=== PATIENT | male | born 1955 | race Caucasian/White ===

== ENCOUNTER 2023-09-15 20:50 | Inpatient (IN) | payer OTHER, SELFPAY ==
--- NOTE | ~2023-09-15 | XR_ITS ---
EXAMINATION: XR chest 1V portable Exam Date/Time: 09/15/2023 21:27 CDT HISTORY: infection, AMS Comparison: None. RESULT: Lines, tubes, and devices: None. Lungs and pleura: Senescent change. Left midlung granuloma. No focal consolidation, pleural effusion , or pneumothorax. Cardiomediastinal silhouette: Mild aortic arch calcification and aortic unfolding. Normal heart size . Other: No acute osseous or upper abdominal finding. Old distal left clavicular fracture healed in de formity, with possible pseudarthrosis. IMPRESSION: No acute cardiopulmonary process. Reviewed, dictated and finalized at location K.
--- NOTE | ~2023-09-15 | CT_ITS ---
CT head without contrast Indication: Altered mental status Technique: Serial scans were obtained through the brain without the administration of contrast. Dose reduction technique was used on this scan by utilizing automated exposure control and iterative recon struction technique. The dose-length product (DLP) was 605.33 mGy-cm. Findings: There is no evidence of intracranial hemorrhage, mass lesion, or acute infarct. The ventri cles and subarachnoid spaces are dilated, consistent with moderate atrophy. Low attenuation regions are seen within the periventricular white matter bilaterally, likely representing changes from chroni c microvascular ischemic disease. There is no evidence of edema, mass effect or midline shift. The visualized paranasal sinuses and mastoid air cells are clear. Impression: No intracranial hemorrhage, mass, or acute infarct. Atrophy and chronic white matter changes, as above. Reviewed, dictated and finalized at location . Impression: No intracranial hemorrhage, mass, or acute infarct. Atrophy and chronic white matter changes, as above.
[2023-09-15 20:49] VITALS: BP 125/115; PULSE 112; RESP 20; TEMP 36.6; O2SAT 97
[2023-09-15 21:01] VITALS: PULSE 94
[2023-09-15 21:19] LABS: Basophils Absolute Auto 0.1 K/mm3 (0.0-0.1); Eosinophils Absolute Auto 0.2 K/mm3 (0-0.3); Eosinophils Percent Auto 2.3 % (0-4.4); Hemoglobin 15.2 g/dL (14.0-18.0); Immature Granulocyte Absolute 0.07 K/mm3 (0.00-0.031); Immature Granulocyte Percent A 0.9 % (0-0.5); Immature Platelet Fraction Pct 10.4 % (0.9-11.2); Lymphocytes Absolute Auto 1.82 K/mm3 (0.9-3.2); Lymphocytes Percent Auto 22.4 % (18.3-44.2); Mean Corpuscular HGB Conc 36.2 g/dl (32-36); Mean Corpuscular Hemoglobin 36.1 pg (26-34); Mean Corpuscular Volume 99.8 fl (80-100); Monocytes Absolute Auto 1.2 K/mm3 (0.1-0.6); Neutrophils Absolute Auto 4.8 K/mm3 (1.3-6.7); Neutrophils Percent Auto 58.4 % (45.5-73.1); Platelet Count Result 134 k/mm3 (150-375); Red Blood Count 4.21 M/mm3 (4.6-6.20); Red Cell Distribution Width 12.6 % (11.5-14.5); White Blood Count 8.1 K/mm3 (4.5-10.0)
[2023-09-15 21:29] LABS: Ammonia 11 umol/L (9-30)
[2023-09-15 21:30] LABS: Alanine Aminotransferase 104 U/L (6-50); Albumin Level 4.4 g/dL (3.5-5.1); Alkaline Phosphatase 82 U/L (38-126); Anion Gap 13 mmol/L (4-12); Aspartate Amino Transferase 175 U/L (17-59); Bilirubin,Total 1.2 mg/dL (0.2-1.3); Blood Urea Nitrogen 4 mg/dL (9-20); Calcium 9.5 mg/dL (8.4-10.2); Carbon Dioxide 19 mmol/L (22-30); Chloride 99 mmol/L (98-107); Creatine Kinase 79 U/L (55-170); Estimated CRCL calculation 79 ml/min; Estimated Glomerular Filt Rate > 60; Glucose 114 mg/dL (65-110); Lactic Acid Reflex 2.1 mmol/L (0.7-2.0); Magnesium 2.2 mg/dL (1.6-2.3); Potassium 3.5 mmol/L (3.4-5.0); Sodium 131 mmol/L (137-145)
[2023-09-15 21:38] LABS: Appearance Urine Clear (Clear); Bacteria Urine None Seen /hpf; Bilirubin Urine Negative (Negative); Blood Urine Negative (Negative); Color Urine Yellow (Yellow); Glucose Urine UA Negative (Negative); Ketones Urine Negative (Negative); Leukocyte Esterase Ur 1+ LEU/UL (Negative); Need Manual Microscopic Reviewed; Nitrate Urine Negative (Negative); Non Pathogenic Casts 0-2; Protein Urine Negative (Negative); RBC Urine 0-2 /hpf (0-2); Specific Grav Ur 1.005 (1.001-1.035); Squamous Epithelial Cell Urine None Seen /hpf (Few); Urobilinogen Urine 0.2 mg/dL (<2.0); WBC Urine 0-5 /hpf (0-3); pH Urine 6.5 (5.0-9.0)
[2023-09-15 21:39] LABS: Add Urine Microscopic? YES
--- NOTE | 2023-09-15 22:09 | ED.AMS ---
HPI - Altered Mental Status General Chief Complaint: Altered Mental Status Stated Complaint: DECREASE IN MENTAL STATUS Time Seen by Provider: 09/15/23 21:01 History of Present Illness HPI narrative: Patient is a 68-year-old male who presents to the emergency department this evening due to confusion. EMS who brought the patient in states that they are familiar with the patient and admit that he does appear to be more confused than his baseline. Patient does have a history of cirrhosis and states that he was told that there was nothing else to do for him and that he knows that he is dying. Patient is alert and oriented to person and situation, thinks that it is 2001 and does not know the name of this hospital and the city he is in. Patient admits that he has never been to this hospital before. He lives at home alone with his cat. He is currently denying any specific symptoms including chest pain, shortness of breath, nausea or vomiting, denies any abdominal pain. No additional symptoms or concerns at this time. Related Data Allergies Allergy/AdvReac Type Severity Reaction Status Date / Time No Known Allergies Allergy Verified 09/15/23 21:04 Review of Systems Review of Systems: All systems are reviewed and are negative unless stated otherwise in the HPI. Exam Narrative: General: Alert, awake, afebrile, poor hygiene. Cardiovascular: Regular rate and rhythm, no murmurs, rubs or gallops, no peripheral edema. Respiratory: Clear to auscultation bilaterally, no tachypnea, no wheezing, no rhonchi, no rubs, no respiratory distress. Abdomen: Soft, nontender, nondistended, no rebound, no guarding, no peritoneal signs. Musculoskeletal: No joint swelling or deformity, normal muscle tone. Skin: No rashes or petechia, no signs of infection. Psychiatric: Alert and oriented x2, normal behavior and judgment for situation. Neurological: Alert and oriented to person, place and situation, not oriented to time. Follows all commands. No focal deficits, speech is clear and fluent. Course Vital Signs Vital signs: Vital Signs Temperature 97.9 F 09/15/23 20:49 Pulse Rate 112 H 09/15/23 20:49 Respiratory Rate 20 09/15/23 20:49 Blood Pressure 125/115 H 09/15/23 20:49 Pulse Oximetry 97 09/15/23 20:49 Oxygen Delivery Room Air 09/15/23 20:49 Temperature 97.9 F 09/15/23 20:49 Pulse Rate 87 09/16/23 04:33 Respiratory Rate 16 09/16/23 04:33 Blood Pressure 110/76 09/16/23 04:33 Pulse Oximetry 99 09/16/23 04:33 Oxygen Delivery Room Air 09/15/23 21:01 MDM - Altered Mental Status MDM Narrative Medical decision making narrative: The patient was evaluated by myself in the emergency department. History is obtained from patient who is an independent historian and physical exam was performed. External medical records were reviewed at this time. IV was established and pertinent tests were ordered. Patient was administered 1 L IV fluid bolus with normal saline. Laboratory results obtained revealing a lactic acid of 2.1, AST of 175, ALT of 104, otherwise no acute process. Ammonia level noted to be normal at 11. Imaging studies obtained included CXR which was independently interpreted by me revealing no acute process, which is pending final radiology interpretation. CT brain without IV contrast was obtained independently interpreted by me revealing no acute process. Differential diagnosis considerations include Hepatic encephalopathy, acute viral syndrome, infectious process such as pneumonia. Comorbidities impacting this visit include history of end-stage liver disease. I have evaluated and discussed social determinants of health with the patient that could potentially impact subsequent diagnosis and treatment plans. On repeat assessment of the patient, reevaluation revealed that the patient is doing well and is in no acute distress. Patient symptoms have Remained stable since he arrived to our em
[2023-09-15 22:11] VITALS: BP 94/69; PULSE 101; RESP 16; O2SAT 97
[2023-09-15 22:31] VITALS: BP 107/71; PULSE 99; RESP 22; O2SAT 96
[2023-09-15] MEDS: SODIUM CHLORIDE 0.9% IV 1,000 ML 999 ML IV CONT (22:47)
[2023-09-15 23:04] VITALS: PULSE 94; RESP 21; O2SAT 97
[2023-09-15 23:15] LABS: Influenza A QL RT-PCR Negative (Negative); Influenza B QL RT-PCR Negative (Negative); RSV RNA, RT-PCR Negative (Negative); SARS-CoV-2 RNA PCR Negative (Negative)
[2023-09-16] VITALS (8 sets, daily range): BP systolic 110–136; BP diastolic 61–83; PULSE 67–100; RESP 16–20; TEMP 35.8–36.7; O2SAT 93–99; BMI 23.1
[2023-09-16 00:15] LABS: Reflex Lactic Acid Yes or No Add Lactic
--- NOTE | 2023-09-16 00:30 | PC.NURSE ---
Discharge instructions reviewed with patient, patient verbalizes understanding. Patient states he is unable to get a ride back to the place he lives.
--- NOTE | 2023-09-16 05:05 | ADMGEN ---
This patient, Mariusz Aguirre, was admitted to [facility] Surg Room 323-02. Patient/family oriented to hospital policies and general routines including ID bracelet, bed and alarms, visiting hours, pain management, procedures, bathroom and other care routines, personal items, smoking policy, room service/diet, and visiting hours. Information on how to activate the Rapid Response Team has been discussed. Patient/Family are encouraged to report perceived risks to care and to ask questions if they do not understand what they are told or what they should do.
--- NOTE | 2023-09-16 06:22 | PM.IMHP ---
H&P: HPI History of Present Illness Date/Time: 09/16/23 06:22 Chief Complaint: 1. Confusion 2. Altered mental status Narrative: Mariusz Aguirre is a 68 yo M with a mHx significan for alcohol dependence, liver cirrhosis and nicotine dependence. He was brought to the [facility] by EMS; the patient states that he did not summon EMS nor does he know who did or why they did. He denies falls, nausea, vomiting, fevers, chest pain, dizziness, LOC Patient does have a history of cirrhosis and states that he was told that there was nothing else to do for him and that he knows that he is dying.? Patient is alert and oriented to person and situation, he is however unable to correctly state the city or date; He smokes about 1ppd of cigarettes, drinks at least 6 cans of beers nightly with his last drink being on the day of admission; he denies recreational/illicit drug. Work-up findings: Patient was administered? 1 L IV fluid bolus with normal saline. Lactic acid of 2.1, AST of 175, ALT of 104, otherwise no acute process.? Ammonia level noted to be normal at 11. CXR which was independently interpreted by me revealing no acute process, which is pending final radiology interpretation. CT brain without IV contrast was obtained independently interpreted by me revealing no acute process. He will be admitted, evaluated and managed for acute encephalopathy probably 2/2 alcohol intoxication, withdrawal or metabolic imbalance. Review of Systems Constitutional: Constitutional: Reports body ache(s), Reports fatigue, Reports lethargy and Reports night sweats Eyes: Eyes: Reports no additional eye complaints and Denies blurry vision ENT: Denies Normal hearing present, Denies dysphagia, Denies epistaxis, Denies nasal congestion and Denies nasal discharge Cardiovascular: Cardiovascular: Denies no additional cardiovascular complaints, Denies leg edema, Denies lightheadedness and Denies palpitations Respiratory: Respiratory: Reports no additional respiratory complaints, Denies hemoptysis, Denies dyspnea and Denies dyspnea on exertion Gastrointestinal: Gastrointestinal: Denies constipation, Denies heartburn, Denies nausea and Denies vomiting Genitourinary: Genitourinary: Denies flank pain and Denies urinary urgency Musculoskeletal: Musculoskeletal: Denies back pain and Denies joint swelling Integumentary/Breasts: Skin/Breast: Denies dry skin and Denies pruritus Neurologic: Denies Abnormal speech present, Denies abnormal gait, Reports confusion and Denies headache(s) Psychiatric: Psychiatric: Reports anxiety, Denies confusion and Denies depression PMFSH Family History Family History (Updated 09/16/23 @ 05:28 by Nicky Young RN) Mother History of open heart surgery Heart disease Father Heart attack Social History Social History Smoking packs per day: 1.5 Smoking cigarettes per day: 30.0 Years smoked: 57 Smoking pack-years: 85.50 Smoking status: Current every day smoker Tobacco type: cigarettes Alcohol intake: current Drinks per week: 42 Substance use: never Do You Feel Safe in your Home?: Yes Lack of Transportation: No Lack of Food: Sometimes True Current Housing: I Have Housing Concerned About Future Housing: No Difficulty Paying Gas/Electric Bills: No Difficulty Paying for Meds: No Currently Unemployed: No Education: Associate Degree Difficulty w/ Childcare or Family Care: No Spiritual care concerns: No Meds Home Medications and Allergies Home Medications Medication Instructions Recorded Confirmed Type No Home Medications 09/16/23 09/16/23 History Allergies Allergy/AdvReac Type Severity Reaction Status Date / Time No Known Allergies Allergy Verified 09/16/23 05:19 Vital Signs Vital Signs - 24 hr 09/15/23 20:49 09/15/23 21:01 09/15/23 22:11 Temperature 97.9 F Pulse Rate 112 H 101 H Respiratory Rate 20 16 Blood Pres
[2023-09-16] MEDS: THIAMINE HCL 200 MG/2 ML VIAL 100 MG IV PUSH (08:21)
[2023-09-16] MEDS: ENOXAPARIN 40 MG/0.4 ML SYRINGE SUB-Q (08:21)
[2023-09-16 08:58] LABS: Basophils Absolute Auto 0.1 K/mm3 (0.0-0.1); Basophils Percent Auto 1.2 % (0.2-1.2); Eosinophils Absolute Auto 0.1 K/mm3 (0-0.3); Eosinophils Percent Auto 2.4 % (0-4.4); Hematocrit 40.1 % (42.0-52.0); Hemoglobin 14.2 g/dL (14.0-18.0); Immature Granulocyte Absolute 0.03 K/mm3 (0.00-0.031); Immature Granulocyte Percent A 0.5 % (0-0.5); Immature Platelet Fraction Pct 8.9 % (0.9-11.2); Lymphocytes Absolute Auto 0.91 K/mm3 (0.9-3.2); Lymphocytes Percent Auto 15.6 % (18.3-44.2); Mean Corpuscular HGB Conc 35.4 g/dl (32-36); Mean Corpuscular Hemoglobin 36.3 pg (26-34); Mean Corpuscular Volume 102.6 fl (80-100); Mean Platelet Volume 11.3 fl (7.4-10.4); Monocytes Absolute Auto 0.7 K/mm3 (0.1-0.6); Monocytes Percent Auto 12.5 % (2.6-8.5); Neutrophils Absolute Auto 3.9 K/mm3 (1.3-6.7); Neutrophils Percent Auto 67.8 % (45.5-73.1); Platelet Count Result 123 k/mm3 (150-375); Red Blood Count 3.91 M/mm3 (4.6-6.20); Red Cell Distribution Width 12.9 % (11.5-14.5); White Blood Count 5.8 K/mm3 (4.5-10.0)
[2023-09-16 09:05] LABS: Alanine Aminotransferase 91 U/L (6-50); Albumin Level 3.7 g/dL (3.5-5.1); Alkaline Phosphatase 78 U/L (38-126); Anion Gap 6 mmol/L (4-12); Aspartate Amino Transferase 146 U/L (17-59); Bilirubin,Total 1.3 mg/dL (0.2-1.3); Blood Urea Nitrogen 5 mg/dL (9-20); Calcium 8.5 mg/dL (8.4-10.2); Carbon Dioxide 25 mmol/L (22-30); Chloride 101 mmol/L (98-107); Estimated CRCL calculation 79 ml/min; Estimated Glomerular Filt Rate > 60; Glucose 129 mg/dL (65-110); Potassium 3.4 mmol/L (3.4-5.0); Sodium 132 mmol/L (137-145)
[2023-09-16 09:07] LABS: Ethanol < 10 mg/dL (<10)
[2023-09-16 11:43] LABS: Glucose Point of Care 127 mg/dl (65-105)
--- NOTE | 2023-09-16 13:29 | PM.IMPN ---
Progress Note: A&P Assessment and Plan (1) Decompensation of cirrhosis of liver: Code(s): K72.90 - Hepatic failure, unspecified without coma; K74.60 - Unspecified cirrhosis of liver Status: Acute Assessment and Plan: Chronic cirrhosis. Tot bili 1.2, AST 175, ALT 104, alk phos 82 on admission. - LFTs improving. Tot bili 1.3, AST 146, ALT 91, Alk phos 91. - Ammonia 11 - Hepatitis panel ordered (2) Acute metabolic encephalopathy: Code(s): G93.41 - Metabolic encephalopathy Status: Acute Assessment and Plan: AMS on arrival. Head CT unremarkable. Ammonia WNL. - AOx4 on todays assessment - monitor (3) Alcohol dependence: Code(s): F10.20 - Alcohol dependence, uncomplicated Status: Acute Assessment and Plan: Patient states he has drank 6 beers nightly for as long as he can remember. The only time patient was not a daily drinker was during his incarceration. He denies any withdrawal symptoms at that time. - [facility] protocol - B12/thiamine/multivitamin ordered - Discussed in depth with patient that continued alcohol abuse will further exacerbate his cirrhosis. He states understanding and notes that he does not want/need any resources for alcohol cessation. (4) Nicotine dependence: Code(s): F17.200 - Nicotine dependence, unspecified, uncomplicated Status: Acute Assessment and Plan: Patient states that he has smoked 1 pack a day since he was a child. Discussed with patient the importance of smoking cessation and he is uninterested. - Denies current need for nicotine patch Time Spent With Patient Time with patient: 25 - 35 minutes Subjective Date/time seen: 09/16/23 13:29 Interval history: 68 year old male with a history of significant alcohol dependence, liver cirrhosis and nicotine dependence presents to the hospital for AMS. Patient lying comfortably in bed. He states that the last thing he remembers prior to admission was falling outside of his hotel room and being unable to get up. Per ED report patient is well known to EMS and he appears confused from his baseline. Head CT and chest XR was unremarkable. On assessment today patient is AOx4 however he continues to be weak. He was evaluated by PT/OT who are recommending continued skilled therapy. Discussed this with care coordination who is concerned because patient does not have health insurance and is living at a hotel. Patient denies any pain, shortness of breath, nausea/vomiting, and changes in bowel/bladder. His CIWAs have been negative since admission. ETOH < 10. Ammonia WNL. Patient denies illicit drug use. UDS ordered. Review of Systems Review of Systems: All systems reviewed & are unremarkable except as noted in HPI and below Exam Narrative: AF HR 73 RR 20 SpO2 97 BP 112/61 General: unkept male in no acute respiratory distress who is nontoxic appearing, lying semi recumbent in bed. HEENT: Normocephalic. Atraumatic. Pupils equal round reactive to light. Extraocular movement intact. No facial asymmetry. Chest: Lungs are clear to auscultation bilaterally. No wheezes or crackles. CV: Heart was regular rate and rhythm. S1/S2. No murmurs, gallops, or rubs. Abd: Abdomen was soft. Nontender. Nondistended. Positive bowel sounds. No organomegaly or masses. Ext: No clubbing, cyanosis, or edema. 2+ DP pulses bilaterally. Neuro: Patient is alert and oriented x4. Strength in the lower extremities. Cranial nerves 2-12 are intact. Speech is clear. Psych: Normal mood and affect. Patient is pleasant and cooperative. Skin: Warm and dry. No rashes noted. Objective Data Vital Signs Vital Signs: Vital Signs - 24 hr 09/15/23 20:49 09/15/23 21:01 09/15/23 22:11 Temperature 97.9 F Pulse Rate 112 H 101 H Respiratory Rate 20 16 Blood Pressure 125/115 H 94/69 L Pulse Oximetry 97 97 Oxygen Delivery Room Air Room Air 09/15/23 21:01 09/15/23 22:31 09/15/23 23:04 Temperature Pulse Rate 94 9
[2023-09-16 17:48] LABS: Amphetamine Screen Urine Negative (Negative); Barbiturate Screen Urine Negative (Negative); Benzodiazepines Screen Urine Negative (Negative); Cannabinoid Screen Urine Negative (Negative); Cocaine Screen Urine Negative (Negative); Methadone Screen Urine Negative (Negative); Opiate Screen Urine Negative (Negative); Phencyclidine Screen Urine Negative (Negative)
[2023-09-16 18:12] LABS: Glucose Point of Care 145 mg/dl (65-105)
[2023-09-16] MEDS: SODIUM CHLORIDE 0.9% IV 1,000 ML 100 ML IV CONT (19:21)
[2023-09-17 00:20] VITALS: BP 123/67; PULSE 65; RESP 20; TEMP 35.5; O2SAT 98
[2023-09-17 00:27] LABS: Glucose Point of Care 104 mg/dl (65-105)
[2023-09-17] MEDS: SODIUM CHLORIDE 0.9% IV 1,000 ML 100 ML IV CONT (04:38)
[2023-09-17 06:00] VITALS: BP 113/80; PULSE 58; RESP 20; TEMP 35.8; O2SAT 96
[2023-09-17 06:47] LABS: Basophils Absolute Auto 0.1 K/mm3 (0.0-0.1); Basophils Percent Auto 1.1 % (0.2-1.2); Eosinophils Absolute Auto 0.1 K/mm3 (0-0.3); Eosinophils Percent Auto 2.7 % (0-4.4); Hematocrit 36.4 % (42.0-52.0); Hemoglobin 12.4 g/dL (14.0-18.0); Immature Granulocyte Absolute 0.02 K/mm3 (0.00-0.031); Immature Granulocyte Percent A 0.5 % (0-0.5); Immature Platelet Fraction Pct 8.8 % (0.9-11.2); Lymphocytes Absolute Auto 0.79 K/mm3 (0.9-3.2); Lymphocytes Percent Auto 17.9 % (18.3-44.2); Mean Corpuscular HGB Conc 34.1 g/dl (32-36); Mean Corpuscular Hemoglobin 36.2 pg (26-34); Mean Corpuscular Volume 106.1 fl (80-100); Mean Platelet Volume 11.5 fl (7.4-10.4); Monocytes Absolute Auto 0.7 K/mm3 (0.1-0.6); Monocytes Percent Auto 15.4 % (2.6-8.5); Neutrophils Absolute Auto 2.8 K/mm3 (1.3-6.7); Neutrophils Percent Auto 62.4 % (45.5-73.1); Platelet Count Result 110 k/mm3 (150-375); Red Blood Count 3.43 M/mm3 (4.6-6.20); Red Cell Distribution Width 12.5 % (11.5-14.5); White Blood Count 4.4 K/mm3 (4.5-10.0)
[2023-09-17 06:53] LABS: Alanine Aminotransferase 66 U/L (6-50); Albumin Level 2.9 g/dL (3.5-5.1); Alkaline Phosphatase 60 U/L (38-126); Anion Gap 3 mmol/L (4-12); Aspartate Amino Transferase 97 U/L (17-59); Bilirubin,Total 1.8 mg/dL (0.2-1.3); Blood Urea Nitrogen 9 mg/dL (9-20); Calcium 7.4 mg/dL (8.4-10.2); Carbon Dioxide 24 mmol/L (22-30); Chloride 104 mmol/L (98-107); Estimated CRCL calculation 91 ml/min; Estimated Glomerular Filt Rate > 60; Glucose 90 mg/dL (65-110); Potassium 3.5 mmol/L (3.4-5.0); Sodium 131 mmol/L (137-145)
[2023-09-17 07:27] LABS: Hepatitis B Surface Antigen Negative (Negative)
[2023-09-17 07:33] LABS: HAV RESULT Negative (Negative); Hepatitis B Core IgM Result Negative (Negative)
[2023-09-17 07:45] LABS: Hepatitis C Virus Antibody Reactive (Negative)
[2023-09-17 07:48] VITALS: BP 124/67; PULSE 63; RESP 16; TEMP 36.4; O2SAT 98
[2023-09-17] MEDS: THIAMINE HCL 200 MG/2 ML VIAL 100 MG IV PUSH (08:56)
[2023-09-17] MEDS: ENOXAPARIN 40 MG/0.4 ML SYRINGE SUB-Q (08:57)
[2023-09-17] MEDS: CYANOCOBALAMIN 1,000 MCG TABLET 1000 MCG PO (08:57)
[2023-09-17 09:00] VITALS: BP 140/93; PULSE 79; O2SAT 99
[2023-09-17 11:40] LABS: Glucose Point of Care 143 mg/dl (65-105)
[2023-09-17 12:00] VITALS: BP 128/74; PULSE 88; RESP 18; TEMP 36.1; O2SAT 98
--- NOTE | 2023-09-17 13:04 | PM.DS ---
DS: Admitting Diagnosis Discharge Date 09/17/23 Admitting Diagnosis Decompensation of cirrhosis of liver Acute metabolic encephalopathy Alcohol dependence Nicotine dependence DS: Discharge Diagnosis Discharge Diagnosis (1) Decompensation of cirrhosis of liver: Code(s): K72.90 - Hepatic failure, unspecified without coma; K74.60 - Unspecified cirrhosis of liver Status: Acute (2) Acute metabolic encephalopathy: Code(s): G93.41 - Metabolic encephalopathy Status: Acute (3) Alcohol dependence: Code(s): F10.20 - Alcohol dependence, uncomplicated Status: Acute (4) Nicotine dependence: Code(s): F17.200 - Nicotine dependence, unspecified, uncomplicated Status: Acute DS: Summary Hospital Course Reason for hospitalization: Decompensation of cirrhosis of liver Acute metabolic encephalopathy Alcohol dependence Nicotine dependence Hospital Course: 68 year old male with a history of significant alcohol dependence, liver cirrhosis and nicotine dependence presents to the hospital for AMS that resolved during admission. Imaging was unremarkable. Labs revealed elevated liver enzymes that improved throughout admission. Patient started on B12 and folic acid supplementation for macrocytic anemia likely secondary to his alcohol intake. On arrival patient endorsed weakness to the lower extremities. Patient evaluated by PT/OT prior to discharge who states that patient demonstrating good mobility with w/w. Patient also notes that even if PT/OT were to recommend placement or home health her would refuse as he wants to go home. Discussed in depth with patient the importance of smoking and alcohol cessation. He states understanding but notes that he does not want to quit either. Resources given by care coordination. Patient discharged home in stable condition he remains AOx4. He will continue his B12 and folic acid supplementation and follow up with his PCP in 1 week. Time spent discussing smoking cessation with patient: more than 10 minutes Status at Discharge Functional status at discharge: uses cane/walker Time Spent with Patient Time attestation: Total time spent providing and/or coordinating discharge services: Time spent: Greater than 30 minutes Exam Narrative: AF HR 88 RR 18 SpO2 98 BP 128/74 General: unkept male in no acute respiratory distress who is nontoxic appearing, lying semi recumbent in bed. HEENT: Normocephalic. Atraumatic. Pupils equal round reactive to light. Extraocular movement intact. No facial asymmetry. Chest: Lungs are clear to auscultation bilaterally. No wheezes or crackles. CV: Heart was regular rate and rhythm. S1/S2. No murmurs, gallops, or rubs. Abd: Abdomen was soft. Nontender. Nondistended. Positive bowel sounds. No organomegaly or masses. Ext: No clubbing, cyanosis, or edema. 2+ DP pulses bilaterally. Neuro: Patient is alert and oriented x4. Strength 5/5 in the upper and lower extremities. Cranial nerves 2-12 are intact. Speech is clear. Psych: Normal mood and affect. Patient is pleasant and cooperative. Skin: Warm and dry. No rashes noted. DS: Data Data Completed and Pending Completed studies during hospitalization: Chest XR Head CT Labs on day of discharge: Labs from last 24 hours 09/17/23 09/17/23 09/17/23 11:36 06:14 00:23 WBC 4.4 L RBC 3.43 L Hgb 12.4 L Hct 36.4 L MCV 106.1 H MCH 36.2 H MCHC 34.1 RDW 12.5 Plt Count 110 L MPV 11.5 H Immature Gran % (Auto) 0.5 Neut % (Auto) 62.4 Lymph % (Auto) 17.9 L [place] % (Auto) 15.4 H Eos % (Auto) 2.7 Baso % (Auto) 1.1 Lymph # (Auto) 0.79 L [place] # (Auto) 0.7 H Eos # (Auto) 0.1 Baso # (Auto) 0.1 Abs Immat Gran (auto) 0.02 Absolute Neuts (auto) 2.8 Absolute Nucleated RBC 0.000 Nucleated RBC % 0.0 % Immature Plt Fraction 8.8 Sodium 131 L Potassium 3.5 Chloride 104 Carbon Dioxide 24 Anion Gap 3 L BUN 9 C
[2023-09-21 13:23] LABS: Hepatitis C RNA, Quant PCR <15 NOT DETECTED IU/mL (NOT DETECTED)
== END 2023-09-17 13:55 | disposition home or self-care (01) | DRG 432 ==
LOC: ANHED 09-16 03:54 → ANH3MEDSUR 09-16 04:41
PROVIDERS: Student in an Organized Health Care Education/Training Program; Admitting Provider Internal Medicine; Emergency Provider Emergency Medicine; Visit Provider Internal Medicine
DX: K70.40 Alcoholic hepatic failure without coma (principal); G93.41 Metabolic encephalopathy; K70.30 Alcoholic cirrhosis of liver without ascites; F10.20 Alcohol dependence, uncomplicated; F17.210 Nicotine dependence, cigarettes, uncomplicated; Z20.822 Contact with and (suspected) exposure to COVID-19; D53.9 Nutritional anemia, unspecified
CPT/HCPCS: 36415; 70450; 71045; 80053; 80074; 80307; 81001; 82140; 82550; 82948; 83605; 83735; 85025; 85055; 87522; 87637; 96360; 97116; 97161; 97165; 97530; 99285; A9270; J1650; J3411; J3475; J7030

== ENCOUNTER 2023-09-29 21:39 | Emergency (ER) | payer OTHER, SELFPAY ==
[2023-09-29 21:06] VITALS: BP 131/91; PULSE 93; RESP 18; TEMP 36.9; O2SAT 97
--- NOTE | 2023-09-29 21:25 | PC.NURSE ---
This RN walked past pt room and pt was leaned over stretcher peeing on wall and onto floor. This RN asked pt to please stop and provided pt with urinal. Pt RN made aware.
[2023-09-29 21:40] VITALS: BP 120/74; PULSE 94; RESP 24; O2SAT 97
--- NOTE | 2023-09-29 21:51 | PC.NURSE ---
upon assessment pt states, i am just waiting to , I have liver cirrhosis that i was diagnoised with 5 years ago . this rn asked patient what he needed to be seen here for today. pt stated, I don't want to be seen here for anything, I just am waiting to from my end stage liver . Pt had urinated on the bed, floor, bed rails, wall, and urinal. pt denies SI and HI at this time. pt admits to chronic alcohol use and states he had continued to drink all day.
--- NOTE | 2023-09-29 23:51 | ED.GENADULT ---
HPI - General Adult General Chief complaint: Unspecified Stated complaint: Thoughts of impending doom Time Seen by Provider: 09/29/23 23:43 History of Present Illness HPI narrative: Patient is a 68-year-old male who presents to the emergency department this evening due to concern that he is dying. Patient has been seen in our facility in the past for this due to decompensated liver failure. Patient states that he is aware that he is dying of liver failure secondary to alcoholic cirrhosis. Patient did admit that he drank 4 beers today and admits to me that he will not stop drinking. Last time patient was seen for in the emergency department for this I did recommend hospital admission for decompensated liver failure, however, patient refused admission as he does not want to leave his CT alone at home. I did discuss with the patient plan of care and if he is willing to be admitted for further evaluation regarding his liver failure, however, patient states that if he cannot bring his CT with him he will not be admitted. Patient states that he was scared at and felt like he was going to so he called 911. Related Data Allergies Allergy/AdvReac Type Severity Reaction Status Date / Time No Known Allergies Allergy Verified 09/16/23 05:19 Review of Systems Review of Systems: All systems are reviewed and are negative unless stated otherwise in the HPI. PMFSH Family History Family History Mother History of open heart surgery Heart disease Father Heart attack Social History Social History Smoking packs per day: 1.5 Smoking cigarettes per day: 30.0 Years smoked: 57 Smoking pack-years: 85.50 Smoking status: Current every day smoker Tobacco type: cigarettes Alcohol intake: current Drinks per week: 42 Substance use: never Do You Feel Safe in your Home?: Yes Lack of Transportation: No Lack of Food: Sometimes True Current Housing: I Have Housing Concerned About Future Housing: No Difficulty Paying Gas/Electric Bills: No Difficulty Paying for Meds: No Currently Unemployed: No Education: Associate Degree Difficulty w/ Childcare or Family Care: No Spiritual care concerns: No Exam Narrative: General: Awake, afebrile, in no acute distress. HEENT: PERRL, no rhinorrhea, no post nasal drip, oropharynx clear. Neck: Trachea midline, no JVD, no lymphadenopathy. Cardiovascular: Regular rate and rhythm, no murmurs, rubs or gallops, no peripheral edema. Respiratory: Clear to auscultation bilaterally, no tachypnea, no wheezing, no rhonchi, no rubs, no respiratory distress. Abdomen: Soft, nontender, nondistended, no rebound, no guarding, no peritoneal signs. Musculoskeletal: No joint swelling or deformity, normal muscle tone. Skin: No rashes or petechia, no signs of infection. Neurological: Alert and oriented to person, place, and time. Follows all commands. No focal deficits, speech is clear and fluent. Course Vital Signs Vital signs: Vital Signs Temperature 98.4 F 09/29/23 21:06 Pulse Rate 93 09/29/23 21:06 Respiratory Rate 18 09/29/23 21:06 Blood Pressure 131/91 H 09/29/23 21:06 Pulse Oximetry 97 09/29/23 21:06 Oxygen Delivery Room Air 09/29/23 21:06 Temperature 98.4 F 09/29/23 21:06 Pulse Rate 88 09/30/23 00:13 Respiratory Rate 18 09/30/23 00:13 Blood Pressure 110/67 09/30/23 00:13 Pulse Oximetry 100 09/30/23 00:13 Oxygen Delivery Room Air 09/29/23 21:06 Medical Decision Making MDM Narrative Medical decision making narrative: The patient was evaluated by myself in the emergency department. History is obtained from patient who is an independent historian and physical exam was performed. External medical records were reviewed at this time. Detailed conversation with patient regarding goals of cares was initiated at this time.
--- NOTE | 2023-09-29 23:55 | PC.NURSE ---
pt refusing assessment and further evaluation at this time. pt refusing blood work at this time. edp dr. krystyna cox.
[2023-09-30 00:13] VITALS: BP 110/67; PULSE 88; RESP 18; O2SAT 100
== END 2023-09-30 00:44 | disposition left against medical advice (07) ==
PROVIDERS: Emergency Provider Emergency Medicine
DX: K72.10 Chronic hepatic failure without coma (principal); K70.30 Alcoholic cirrhosis of liver without ascites; F17.210 Nicotine dependence, cigarettes, uncomplicated
CPT/HCPCS: 99283; 99284

== ENCOUNTER 2023-10-03 16:38 | Emergency (ER) | payer OTHER, SELFPAY ==
[2023-10-03 16:38] VITALS: PULSE 83; RESP 19; TEMP 36.7
--- NOTE | 2023-10-03 16:53 | ECG_ITS ---
[facility] [address] Test Date: 2023-10-03 Pat Name: Mariusz Aguirre Department: Room: Gender: M [employer]visor [employer]: : [id number] Requested By: French Reza Order Number: [id number] Ursula MD: Sebastian Beauchamp M.D. Measurements Intervals [place] Rate: 81 P: 75 TX: 160 QRS: 86 QRSD: 98 T: 43 QT: 391 QTc: 455 Interpretive Statements SINUS RHYTHM WITH OCCASIONAL VENTRICULAR PREMATURE COMPLEXES LOW QRS VOLTAGE ABNORMAL ECG No previous ECG available for comparison Electronically Signed On 10-04-2023 08:56:57 CDT by Sebastian Beauchamp M.D.
[2023-10-03 17:00] LABS: Glucose Point of Care 101 mg/dl (65-105)
[2023-10-03 17:02] VITALS: BP 111/86; PULSE 70; RESP 22; O2SAT 94
[2023-10-03 17:05] LABS: Basophils Absolute Auto 0.1 K/mm3 (0.0-0.1); Eosinophils Absolute Auto 0.2 K/mm3 (0-0.3); Eosinophils Percent Auto 3.5 % (0-4.4); Hematocrit 39.5 % (42.0-52.0); Hemoglobin 13.9 g/dL (14.0-18.0); Immature Granulocyte Absolute 0.01 K/mm3 (0.00-0.031); Immature Granulocyte Percent A 0.2 % (0-0.5); Lymphocytes Absolute Auto 1.02 K/mm3 (0.9-3.2); Lymphocytes Percent Auto 22.6 % (18.3-44.2); Mean Corpuscular HGB Conc 35.2 g/dl (32-36); Mean Corpuscular Hemoglobin 36.5 pg (26-34); Mean Corpuscular Volume 103.7 fl (80-100); Mean Platelet Volume 9.7 fl (7.4-10.4); Monocytes Absolute Auto 0.7 K/mm3 (0.1-0.6); Monocytes Percent Auto 14.6 % (2.6-8.5); Neutrophils Absolute Auto 2.6 K/mm3 (1.3-6.7); Neutrophils Percent Auto 57.1 % (45.5-73.1); Platelet Count Result 156 k/mm3 (150-375); Red Blood Count 3.81 M/mm3 (4.6-6.20); Red Cell Distribution Width 12.8 % (11.5-14.5); White Blood Count 4.5 K/mm3 (4.5-10.0)
[2023-10-03 17:17] LABS: Alanine Aminotransferase 34 U/L (6-50); Albumin Level 3.8 g/dL (3.5-5.1); Alkaline Phosphatase 69 U/L (38-126); Anion Gap 8 mmol/L (4-12); Aspartate Amino Transferase 71 U/L (17-59); Bilirubin,Total 0.8 mg/dL (0.2-1.3); Blood Urea Nitrogen 4 mg/dL (9-20); Calcium 8.3 mg/dL (8.4-10.2); Carbon Dioxide 23 mmol/L (22-30); Chloride 104 mmol/L (98-107); Estimated CRCL calculation 91 ml/min; Estimated Glomerular Filt Rate > 60; Glucose 100 mg/dL (65-110); Potassium 3.9 mmol/L (3.4-5.0); Sodium 135 mmol/L (137-145)
[2023-10-03 17:51] VITALS: BP 123/82; PULSE 83; RESP 24; O2SAT 96
--- NOTE | 2023-10-03 18:06 | ED.ALCOHOL ---
HPI - Alcohol General Chief Complaint: Alcohol Stated Complaint: requesting NH placement Time Seen by Provider: 10/03/23 17:04 Source: patient Mode of arrival: ambulatory Limitations: no limitations History of Present Illness HPI narrative: this is a 68-year-old male with PMH of cirrhosis, homelessness who presents to the ED via EMS for chief complaint of alcoholic intoxication. Patient states that he has chronic weakness of his lower extremities, right worse than left. Today he is feeling generally unwell and wants to be placed in a half-way. Admits to drinking 3 tall boys of beer today. patient states that he has been feeling this way for the last month. He has been staying at the motel. EMS was called by stay bystander today after patient was witnessed urinating in the parking lot. Patient states that he did this because he felt so weak and could not go anywhere else. Denies fevers, chills, shortness of breath, chest pain, abdominal pain, nausea, vomiting, diarrhea. Related Data Allergies Allergy/AdvReac Type Severity Reaction Status Date / Time No Known Allergies Allergy Verified 10/03/23 17:03 Review of Systems Review of Systems: All systems as dictated in [facility] Family History Family History Mother History of open heart surgery Heart disease Father Heart attack Social History Social History Smoking packs per day: 1.5 Smoking cigarettes per day: 30.0 Years smoked: 57 Smoking pack-years: 85.50 Smoking status: Current every day smoker Tobacco type: cigarettes Alcohol intake: current Drinks per week: 42 Substance use: never Do You Feel Safe in your Home?: Yes Lack of Transportation: No Lack of Food: Sometimes True Current Housing: I Have Housing Concerned About Future Housing: No Difficulty Paying Gas/Electric Bills: No Difficulty Paying for Meds: No Currently Unemployed: No Education: Associate Degree Difficulty w/ Childcare or Family Care: No Spiritual care concerns: No Exam Narrative: GENERAL: Well-appearing, well-nourished, and in no acute distress. Clinically mildly intoxicated. HEAD: Normocephalic, atraumatic. EYES: PERRLA and EOMI. ENT: Nares clear, no rhinorrhea or epistaxis. Mucous membranes moist. Oropharynx without tonsillar hypertrophy exudate or other lesions. NECK: Supple. No adenopathy or masses. CHEST: No respiratory distress. Clear to auscultation. No wheezes rales or rhonchi HEART: Regular rate and rhythm. No murmur heard. Normal peripheral pulses. ABDOMEN: Soft, nontender, nondistended, normal active bowel sounds. MSK: Normal range of motion. No edema. SKIN: Warm, dry, no rash. NEURO: Alert and oriented x4. No focal deficits. PSYCH: Normal mood and affect. Course Vital Signs Vital signs: Vital Signs Temperature 98.0 F 10/03/23 16:38 Pulse Rate 83 10/03/23 16:38 Respiratory Rate 19 10/03/23 16:38 Temperature 98.0 F 10/03/23 16:38 Pulse Rate 89 10/04/23 01:25 Respiratory Rate 12 10/04/23 01:25 Blood Pressure 138/92 H 10/04/23 01:25 Pulse Oximetry 97 10/04/23 01:25 MDM - Alcohol MDM Narrative Medical decision making narrative: this is a 68-year-old male who presents to the ED via EMS after bystander called paramedics. Pelvic intoxication, urinating in the parking lot of the Motel where he lives. Vitals are normal. Exam shows alcoholic intoxication but otherwise normal. Patient reports chronic weakness and liver cirrhosis and had that he has been feeling unwell. Laboratory workup is grossly unremarkable. UA negative. UDS negative. Alcohol elevated to 220 initially. Redraw alcohol at midnight that showed decreased down to 41. He is clinically sober at this point. Discussed with the patient that there is no medical reason for admission. He explains that
[2023-10-03 18:38] LABS: Appearance Urine Clear (Clear); Bacteria Urine None Seen /hpf; Bilirubin Urine Negative (Negative); Blood Urine Negative (Negative); Color Urine Yellow (Yellow); Glucose Urine UA Negative (Negative); Ketones Urine Negative (Negative); Leukocyte Esterase Ur Trace LEU/UL (Negative); Need Manual Microscopic Reviewed; Nitrate Urine Negative (Negative); Non Pathogenic Casts 0-2; Protein Urine Negative (Negative); RBC Urine 0-2 /hpf (0-2); Squamous Epithelial Cell Urine None Seen /hpf (Few); Urobilinogen Urine 0.2 mg/dL (<2.0); WBC Urine 0-5 /hpf (0-3); pH Urine 6.5 (5.0-9.0)
[2023-10-03 18:40] VITALS: BP 138/94; PULSE 88; RESP 13; O2SAT 96
[2023-10-03] MEDS: THIAMINE 500 MG/NS 100 ML 500 MG/100 ML BAG 200 MG IVPB (18:40)
[2023-10-03 19:00] VITALS: BP 100/85; PULSE 96; RESP 18; O2SAT 95
[2023-10-03 19:13] LABS: Add Urine Microscopic? YES; Specific Grav Ur 1.003 (1.001-1.035)
[2023-10-03 20:39] VITALS: BP 121/80; PULSE 90; RESP 19; O2SAT 94
[2023-10-03 21:04] LABS: Ethanol 220 mg/dL (<10)
[2023-10-04 00:01] LABS: Amphetamine Screen Urine Negative (Negative); Barbiturate Screen Urine Negative (Negative); Benzodiazepines Screen Urine Negative (Negative); Cannabinoid Screen Urine Negative (Negative); Cocaine Screen Urine Negative (Negative); Methadone Screen Urine Negative (Negative); Opiate Screen Urine Negative (Negative); Phencyclidine Screen Urine Negative (Negative)
[2023-10-04 01:02] LABS: Ethanol 41 mg/dL (<10)
[2023-10-04 01:25] VITALS: BP 138/92; PULSE 89; RESP 12; O2SAT 97
--- NOTE | 2023-10-04 01:25 | PC.NURSE ---
Informed chargeback specialist that pt was in need of cab voucher to [facility] in [place], [place]. TORI Wilson called housekeeping assistant and is awaiting a call back with more info.
== END 2023-10-04 02:40 | disposition home or self-care (01) ==
PROVIDERS: Emergency Medicine; Emergency Provider Physician Assistant
DX: F10.129 Alcohol abuse with intoxication, unspecified (principal); K74.60 Unspecified cirrhosis of liver; Z59.01 Sheltered homelessness; F17.210 Nicotine dependence, cigarettes, uncomplicated; Y90.7 Blood alcohol level of 200-239 mg/100 ml
CPT/HCPCS: 36415; 80053; 80307; 81001; 82948; 85025; 93005; 96365; 99284; J3411

== ENCOUNTER 2023-10-10 19:41 | Emergency (ER) | payer OTHER, SELFPAY ==
--- NOTE | ~2023-10-10 | XR_ITS ---
XR chest 1V portable Ordering provider: Marguerite Jacobsen History: 68 years Male with . INfection SOB . Comparison: September 15, 2023 FINDINGS: MEDIASTINUM: The cardiac silhouette is not enlarged. LUNGS: No infiltrates, effusions or pneumothorax. Prominent markings in the lower lobes. Emphysematou s changes of the lungs. OTHER: No free air under the diaphragm. Degenerative changes of the spine. IMPRESSION: No acute cardiopulmonary pathology. Reviewed, dictated and finalized at location A.
[2023-10-10 19:44] VITALS: BP 109/62; PULSE 112; RESP 20; TEMP 36.1; O2SAT 95
--- NOTE | 2023-10-10 22:20 | PC.NURSE ---
PT states that he is having a hard time breathing and is just very sick patient states that he has a history of liver cirrhosis and it's Killing him patient states that he occasionally vomits and it is black when he does. patient had soiled himself upon arrival to the ED and there were what appeared to be coffee ground like substance stuck to his skin. patient states that he has drank one beer today and that it was 24 oz. patient states that he wants to go to a hospital that [facility]. patient alert and oriented x 3 but wasn't able to name the president, he named Roger Hernandez but then started talking about Bidens son who is going to go to intermediate patient talking appropriately, following commands, and carrying on conversation. patient does not have a specific complaint at this time.
[2023-10-10 22:25] VITALS: RESP 18; O2SAT 99
--- NOTE | 2023-10-10 22:34 | ED.GENADULT ---
HPI - General Adult General Chief complaint: Unspecified Stated complaint: I dont feel good Time Seen by Provider: 10/10/23 22:26 History of Present Illness HPI narrative: Patient is a 68-year-old male who presents to the emergency department this evening complaining of generally feeling unwell and generally weak. Patient is seen in our facility in the past multiple times and every time we tried admit him for various reasons, he signs out AMA because he does not want to leave his cat alone. He resides in a nearby motel. Patient does have a history of alcoholic cirrhosis and dist states that he does not have long to live but continues to drink alcohol daily as he does not want to and will not quit. Today EMS report states that patient was having hard time walking, however, in the emergency department patient is ambulating well without any difficulty. She denies any chest pain or shortness of breath, any abdominal pain, any recent illness any fevers or chills. No additional symptoms or concerns at this time. Related Data Allergies Allergy/AdvReac Type Severity Reaction Status Date / Time No Known Allergies Allergy Verified 10/03/23 17:03 Review of Systems Review of Systems: All systems are reviewed and are negative unless stated otherwise in the HPI. [facility] Family History Family History Mother History of open heart surgery Heart disease Father Heart attack Social History Social History Smoking packs per day: 1.5 Smoking cigarettes per day: 30.0 Years smoked: 57 Smoking pack-years: 85.50 Smoking status: Current every day smoker Tobacco type: cigarettes Alcohol intake: current Drinks per week: 42 Substance use: never Do You Feel Safe in your Home?: Yes Lack of Transportation: No Lack of Food: Sometimes True Current Housing: I Have Housing Concerned About Future Housing: No Difficulty Paying Gas/Electric Bills: No Difficulty Paying for Meds: No Currently Unemployed: No Education: Associate Degree Difficulty w/ Childcare or Family Care: No Spiritual care concerns: No Exam Narrative: General: Alert, awake, afebrile, in no acute distress. HEENT: PERRL, no rhinorrhea, no post nasal drip, oropharynx clear. Cardiovascular: Regular rate and rhythm, no murmurs, rubs or gallops, no peripheral edema. Respiratory: Clear to auscultation bilaterally, no tachypnea, no wheezing, no rhonchi, no rubs, no respiratory distress. Abdomen: Soft, nontender, nondistended, no rebound, no guarding, no peritoneal signs. Musculoskeletal: No joint swelling or deformity, normal muscle tone. Skin: No rashes or petechia, no signs of infection. Psychiatric: Alert and oriented, normal behavior and judgment for situation. Neurological: Alert and oriented to person, place, and time. Follows all commands. No focal deficits, speech is clear and fluent. Course Vital Signs Vital signs: Vital Signs Temperature 97 F L 10/10/23 19:44 Pulse Rate 112 H 10/10/23 19:44 Respiratory Rate 20 10/10/23 19:44 Blood Pressure 109/62 10/10/23 19:44 Pulse Oximetry 95 10/10/23 19:44 Oxygen Delivery Room Air 10/10/23 19:44 Temperature 97 F L 10/10/23 19:44 Pulse Rate 67 10/11/23 00:53 Respiratory Rate 18 10/11/23 00:53 Blood Pressure 124/77 10/11/23 00:53 Pulse Oximetry 100 10/11/23 00:53 Oxygen Delivery Room Air 10/10/23 19:44 Medical Decision Making MDM Narrative Medical decision making narrative: The patient was evaluated by myself in the emergency department. History is obtained from patient who is an independent historian and physical exam was performed. External medical records were reviewed at this time. IV was established and pertinent tests were ordered. Patient was administered 1 L IV fluid bolus with normal saline. Laboratory results obtained
[2023-10-10 23:04] VITALS: BP 94/78; PULSE 94; PULSE 99; RESP 22; O2SAT 99
[2023-10-10 23:21] LABS: Basophils Absolute Auto 0.1 K/mm3 (0.0-0.1); Basophils Percent Auto 1.2 % (0.2-1.2); Eosinophils Absolute Auto 0.2 K/mm3 (0-0.3); Eosinophils Percent Auto 2.9 % (0-4.4); Hemoglobin 13.2 g/dL (14.0-18.0); Immature Granulocyte Absolute 0.05 K/mm3 (0.00-0.031); Immature Granulocyte Percent A 0.8 % (0-0.5); Lymphocytes Absolute Auto 1.63 K/mm3 (0.9-3.2); Lymphocytes Percent Auto 27.6 % (18.3-44.2); Mean Corpuscular HGB Conc 35.7 g/dl (32-36); Mean Corpuscular Volume 103.6 fl (80-100); Mean Platelet Volume 10.7 fl (7.4-10.4); Monocytes Absolute Auto 0.8 K/mm3 (0.1-0.6); Monocytes Percent Auto 13.9 % (2.6-8.5); Neutrophils Absolute Auto 3.2 K/mm3 (1.3-6.7); Neutrophils Percent Auto 53.6 % (45.5-73.1); Platelet Count Result 105 k/mm3 (150-375); Red Blood Count 3.57 M/mm3 (4.6-6.20); Red Cell Distribution Width 12.3 % (11.5-14.5); White Blood Count 5.9 K/mm3 (4.5-10.0)
[2023-10-10 23:26] LABS: Appearance Urine Clear (Clear); Bacteria Urine None Seen /hpf; Bilirubin Urine Negative (Negative); Blood Urine Negative (Negative); Color Urine Dark Yellow (Yellow); Glucose Urine UA Negative (Negative); Ketones Urine Trace mg/dL (Negative); Leukocyte Esterase Ur Trace LEU/UL (Negative); Nitrate Urine Negative (Negative); Non Pathogenic Casts 0-2; Protein Urine Negative (Negative); RBC Urine 0-2 /hpf (0-2); Specific Grav Ur 1.009 (1.001-1.035); Squamous Epithelial Cell Urine None Seen /hpf (Few); WBC Urine 0-5 /hpf (0-3); pH Urine 6.5 (5.0-9.0)
[2023-10-10 23:31] LABS: Add Urine Microscopic? YES
[2023-10-10 23:34] LABS: Ammonia < 9 umol/L (9-30); Ethanol 113 mg/dL (<10)
[2023-10-10 23:35] LABS: Alanine Aminotransferase 54 U/L (6-50); Albumin Level 3.6 g/dL (3.5-5.1); Alkaline Phosphatase 74 U/L (38-126); Anion Gap 9 mmol/L (4-12); Aspartate Amino Transferase 92 U/L (17-59); Blood Urea Nitrogen 4 mg/dL (9-20); Carbon Dioxide 24 mmol/L (22-30); Chloride 99 mmol/L (98-107); Estimated CRCL calculation 88 ml/min; Estimated Glomerular Filt Rate > 60; Glucose 110 mg/dL (65-110); Potassium 3.3 mmol/L (3.4-5.0); Sodium 132 mmol/L (137-145)
[2023-10-10] MEDS: SODIUM CHLORIDE 0.9% IV 1,000 ML 999 ML IV CONT (23:43)
[2023-10-10 23:57] LABS: Influenza A QL RT-PCR Negative (Negative); Influenza B QL RT-PCR Negative (Negative); RSV RNA, RT-PCR Negative (Negative); SARS-CoV-2 RNA PCR Negative (Negative)
[2023-10-11 00:53] VITALS: BP 124/77; PULSE 67; RESP 18; O2SAT 100
--- NOTE | 2023-10-11 00:53 | PC.NURSE ---
Patient states that he needs a cab called. Patient states that he will pay for a cab with his money. Patient was placed in blue paper scrubs, IV removed, and moved himself from hospital bed to wheelchair. Patient was wheeled to waiting room where a cab will be called to take patient back to residence.
[2023-10-11 02:17] LABS: Reflex Lactic Acid Yes or No Add Lactic
== END 2023-10-11 00:55 | disposition home or self-care (01) ==
PROVIDERS: Emergency Provider Emergency Medicine
DX: E86.0 Dehydration (principal); F10.10 Alcohol abuse, uncomplicated; Y90.5 Blood alcohol level of 100-119 mg/100 ml; Z20.822 Contact with and (suspected) exposure to COVID-19; K70.30 Alcoholic cirrhosis of liver without ascites; F17.210 Nicotine dependence, cigarettes, uncomplicated
CPT/HCPCS: 36415; 71045; 80053; 80307; 81001; 82140; 82248; 83605; 83735; 85025; 87637; 96360; 99284; J7030

== ENCOUNTER 2023-11-01 17:23 | Emergency (ER) | payer OTHER, SELFPAY ==
--- NOTE | ~2023-11-01 | CT_ITS ---
CT chest abdomen pelvis w con Ordering provider: Stephie Hanley PA-C History: . left upper back pain and abd pain s/p fall . Comparison: None. Technique: CT chest, abdomen and pelvis with IV contrast only. The dose-length product was 459.49 mGy -cm. 100 mL of Omnipaque 350 was given IV. FINDINGS: CHEST: --VISUALIZED THORACIC INLET: Normal. --MEDIASTINUM: Aorta/coronary arteries: Mild atheromatous disease. Heart/other: The heart is not enlarged. Lymph nodes: No mediastinal or hilar adenopathy. --LUNGS: 4 mm nodule is seen in the right upper lobe.. Nodule in the left lower lobe posteriorly la uring 8 mm. No pulmonary nodules or masses. No infiltrates or effusions. No pneumothorax. --MUSCULOSKELETAL: Soft tissues: The superficial soft tissues are normal. Bones: Acute fractures in the left hemithorax involving the fifth, sixth, seventh and eighth ribs. Multiple healed fractures bilaterally. Age appropriate degenerative changes of the spine. ABDOMEN/PELVIS: --MUSCULOSKELETAL: Bones: No acute fracture. Age appropriate degenerative changes of the spine. 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 Superficial soft tissues: The superficial soft tissues are normal. --UPPER ABDOMINAL ORGANS: Liver: Fat infiltration. Gallbladder: Contracted. Spleen: Normal. Stomach/duodenum: Small sliding hiatus hernia. Pancreas: Normal. Adrenals: Normal. Kidneys: Normal. --PELVIC ORGANS: The bladder is normal. --BOWEL AND MESENTERY: Colon: No evidence of diverticulitis. Normal appendix. Small Bowel: Normal. No obstruction. Peritoneum/mesentery: No free air or free fluid. No mesenteric lymphadenopathy. --RETROPERITONEUM: Mild atheromatous disease of the abdominal aorta. No retroperitoneal hemorrhage o r aortic trauma. No retroperitoneal lymphadenopathy or retroperitoneal hemorrhage. IMPRESSION: CHEST: 1. No acute cardiopulmonary pathology. No pulmonary embolism. 2. 2 nodules in the right upper lobe and left lower lobe with the largest measuring 8 mm. 3-6 months follow-up advised. 3. Acute fractures in the left hemithorax involving the fifth, sixth, seventh and eighth ribs. ABDOMEN/PELVIS: 1. No evidence of acute abdominal process. Reviewed, dictated and finalized at location A. IMPRESSION: CHEST: 1. No acute cardiopulmonary pathology. No pulmonary embolism. 2. 2 nodules in the right upper lobe and left lower lobe with the largest la uring 8 mm. 3-6 months follow-up advised. 3. Acute fractures in the left hemithorax involving the fifth, sixth, sevent h and eighth ribs. ABDOMEN/PELVIS: 1. No evidence of acute abdominal process.
[2023-11-01 17:30] VITALS: BP 111/76; PULSE 88; RESP 20; TEMP 36.8; O2SAT 98
--- NOTE | 2023-11-01 18:19 | ED.FALL ---
HPI - Fall General Chief Complaint: Fall Stated Complaint: fall Time Seen by Provider: 11/01/23 17:56 History of Present Illness HPI Narrative: 68-year-old male with history of alcohol dependence, homelessness and cirrhosis presents to the emergency department after a mechanical ground level fall. Patient states he was getting up from his walker wheelchair and when he turned around to grab a hold of the walker, the wheels were not locked and it slipped causing him to fall to the ground. States he was in the motel parking lot and hit his back on the curb. He is complaining of right-sided mid back / flank pain as well as abdominal pain from the fall. states he broke his left posterior ribs a few months ago and is concerned he injured his ribs again. He denies hitting his head or losing consciousness. He denies extremity injury , neck pain or other injury acquired. he denies numbness to his groin, bowel or bladder incontinence, urinary retention. Related Data Allergies Allergy/AdvReac Type Severity Reaction Status Date / Time No Known Allergies Allergy Verified 10/03/23 17:03 Review of Systems Review of Systems: CONSTITUTIONAL: Denies fever, chills, or sweats. EYES: Denies visual changes, redness, or discharge. ENT: Denies rhinorrhea, congestion, sore throat, or otalgia. CARDIOVASCULAR: Denies chest pain, palpitations, or edema. RESPIRATORY: Denies cough or dyspnea. GASTROINTESTINAL: See HPI GENITOURINARY: Denies dysuria or hematuria. SKIN: Denies rash or itching. MUSCULOSKELETAL: see HPI NEUROLOGIC: Denies headache, numbness, or weakness. PSYCHIATRIC: Denies anxiety or depression. [facility] Family History Family History Mother History of open heart surgery Heart disease Father Heart attack Social History Social History Smoking packs per day: 1.5 Smoking cigarettes per day: 30.0 Years smoked: 57 Smoking pack-years: 85.50 Smoking status: Current every day smoker Tobacco type: cigarettes Alcohol intake: current Drinks per week: 42 Substance use: never Do You Feel Safe in your Home?: Yes Lack of Transportation: No Lack of Food: Sometimes True Current Housing: I Have Housing Concerned About Future Housing: No Difficulty Paying Gas/Electric Bills: No Difficulty Paying for Meds: No Currently Unemployed: No Education: Associate Degree Difficulty w/ Childcare or Family Care: No Spiritual care concerns: No Exam Narrative: GENERAL: Well-appearing, well-nourished, and in no acute distress. HEAD: Normocephalic, atraumatic. EYES: PERRLA and EOMI. ENT: Nares clear, no rhinorrhea or epistaxis. Mucous membranes moist. NECK: No midline cervical spinous tenderness, step-offs or deformities. BACK: No midline thoracolumbar spinous tenderness, step-offs or deformities. Tenderness to the left midback overlying the posterior lateral left inferior ribs without overlying crepitus, step-offs or deformities. CHEST: Clear to auscultation. No respiratory distress. HEART: Regular rate and rhythm. No murmur heard. Normal peripheral pulses. ABDOMEN: Soft, minimal tenderness in the right lower quadrant and left upper quadrants without rebound, guarding or rigidity. small area of dark purple ecchymosis to the right lower quadrant of the abdomen. EXTREMITIES: Normal range of motion. No edema. No tenderness to lower extremities. Strength out of 5 in BLE. Sensation intact throughout SKIN: Warm, dry, no rash. NEURO: No focal deficits. Alert and oriented x3 Course Vital Signs Vital signs: Vital Signs Temperature 98.2 F 11/01/23 17:30 Pulse Rate 88 11/01/23 17:30 Respiratory Rate 20 11/01/23 17:30 Blood Pressure 111/76 11/01/23 17:30 Pulse Oximetry 98 11/01/23 17:30 Oxygen Delivery Room Air 11/01/23 17:30 Temperature 98.2 F 11/01/23 17:30 P
[2023-11-01 18:30] VITALS: BP 107/71; PULSE 91; RESP 18; O2SAT 97
[2023-11-01 18:34] LABS: Basophils Absolute Auto 0.1 K/mm3 (0.0-0.1); Eosinophils Absolute Auto 0.2 K/mm3 (0-0.3); Eosinophils Percent Auto 2.9 % (0-4.4); Hemoglobin 13.2 g/dL (14.0-18.0); Immature Granulocyte Absolute 0.03 K/mm3 (0.00-0.031); Immature Granulocyte Percent A 0.4 % (0-0.5); Lymphocytes Absolute Auto 0.87 K/mm3 (0.9-3.2); Lymphocytes Percent Auto 12.2 % (18.3-44.2); Mean Corpuscular HGB Conc 34.7 g/dl (32-36); Mean Corpuscular Hemoglobin 36.9 pg (26-34); Mean Corpuscular Volume 106.1 fl (80-100); Mean Platelet Volume 9.7 fl (7.4-10.4); Monocytes Absolute Auto 0.9 K/mm3 (0.1-0.6); Monocytes Percent Auto 13.2 % (2.6-8.5); Neutrophils Percent Auto 70.3 % (45.5-73.1); Platelet Count Result 223 k/mm3 (150-375); Red Blood Count 3.58 M/mm3 (4.6-6.20); Red Cell Distribution Width 12.7 % (11.5-14.5); White Blood Count 7.1 K/mm3 (4.5-10.0)
[2023-11-01 18:36] LABS: Appearance Urine Clear (Clear); Bilirubin Urine Negative (Negative); Blood Urine Negative (Negative); Color Urine Yellow (Yellow); Glucose Urine UA Negative (Negative); Ketones Urine Negative (Negative); Leukocyte Esterase Ur Negative LEU/UL (Negative); Nitrate Urine Negative (Negative); Protein Urine Negative (Negative); Specific Grav Ur 1.003 (1.001-1.035); Urobilinogen Urine 0.2 mg/dL (<2.0)
[2023-11-01 18:44] LABS: Add Urine Microscopic? NO; Alanine Aminotransferase 23 U/L (6-50); Albumin Level 3.6 g/dL (3.5-5.1); Alkaline Phosphatase 108 U/L (38-126); Anion Gap 5 mmol/L (4-12); Aspartate Amino Transferase 41 U/L (17-59); Bilirubin,Total 1.1 mg/dL (0.2-1.3); Blood Urea Nitrogen 4 mg/dL (9-20); Calcium 8.3 mg/dL (8.4-10.2); Carbon Dioxide 27 mmol/L (22-30); Chloride 103 mmol/L (98-107); Estimated CRCL calculation 91 ml/min; Estimated Glomerular Filt Rate > 60; Glucose 90 mg/dL (65-110); Potassium 3.5 mmol/L (3.4-5.0); Sodium 135 mmol/L (137-145)
[2023-11-01 19:18] VITALS: BP 103/71; PULSE 95; RESP 20; O2SAT 97
[2023-11-01 20:41] VITALS: BP 100/73; PULSE 92; RESP 20; O2SAT 93
[2023-11-01 21:46] LABS: Prothrombin Time 13.1 Seconds (11.1-14.7)
[2023-11-01 21:47] LABS: Partial Thromboplastin Time 29.5 Seconds (22.3-36.8)
[2023-11-01 21:51] VITALS: BP 112/75; PULSE 89; RESP 19; O2SAT 97
[2023-11-01] MEDS: MORPHINE SULFATE (*CRX) 2 MG/ML INJ IV PUSH (22:14)
--- NOTE | 2023-11-01 22:22 | PC.NURSE ---
Report given to Nilsa walsh [facility]
[2023-11-01 23:11] VITALS: PULSE 88; RESP 18; O2SAT 97
[2023-11-02 02:20] VITALS: BP 112/56; PULSE 86; RESP 15; O2SAT 96
[2023-11-02 02:59] VITALS: BP 108/82; PULSE 86; RESP 15; O2SAT 100
[2023-11-02] MEDS: MORPHINE SULFATE (*CRX) 2 MG/ML INJ IV PUSH (03:26)
== END 2023-11-02 04:35 | disposition short-term general hospital (02) ==
PROVIDERS: Emergency Provider Physician Assistant
DX: S22.42XA Multiple fractures of ribs, left side, initial encounter for closed fracture (principal); K74.60 Unspecified cirrhosis of liver; F10.20 Alcohol dependence, uncomplicated; F17.210 Nicotine dependence, cigarettes, uncomplicated; Z59.01 Sheltered homelessness; R91.8 Other nonspecific abnormal finding of lung field; W18.39XA Other fall on same level, initial encounter
CPT/HCPCS: 36415; 71260; 74177; 80053; 81003; 85025; 85610; 85730; 96374; 99285; J2270; Q9967